=== PATIENT | male | born 1995 | race Caucasian/White ===

== ENCOUNTER 2018-02-20 05:06 | Emergency (ER) | payer OTHER ==
[2018-02-20] MEDS ORDERED: KETOROLAC TROMETHAMINE INJ/PF 30 MG/1 ML SDV IV ONE (05:35)
[2018-02-20] MEDS ORDERED: ONDANSETRON HCL INJ/PF 4 MG/2 ML SDV IV ONE (05:35)
--- NOTE | 2018-02-20 05:38 | ER Document Report ---
ED Medical Screen (RME) - General Chief Complaint: Possible Kidney Stone Stated Complaint: LEFT SIDE PAIN Time Seen by Provider: 02/20/18 05:35 Notes: Patient is a 22-year-old male presenting to the emergency department complaining of a left flank pain radiating to his left groin. Patient states he initially only had left flank pain yesterday states this morning he was awoken with increased pain radiating down to his left groin. Patient states he does have a history of kidney stones and had kidney stones 4 years ago. Patient states he took Tylenol which did not help. Patient states he is nauseated but has not vomited and admits to minor dysuria. Patient denies any penile discharge. Past medical history: Kidney stones Medication: Zyrtec Allergies: Seasonal Surgical history: None Physical exam: CVA tenderness on the left, minor left lower quadrant abdominal pain, uncircumcised penis with bilateral testicles descended no erythema or swelling noted. I have greeted and performed a rapid initial assessment of this patient. A comprehensive ED assessment and evaluation of the patient, analysis of test results and completion of the medical decision making process will be conducted by additional ED providers. TRAVEL OUTSIDE OF THE [place] IN LAST 30 DAYS: No - Related Data Allergies/Adverse Reactions: amoxicillin Allergy (Verified 02/20/18 05:15) Physical Exam - Vital signs Vitals: Temp Pulse Resp BP Pulse Ox 98.1 F 80 16 146/91 H 98 02/20/18 05:12 02/20/18 05:12 02/20/18 05:12 02/20/18 05:12 02/20/18 05:12 Course - Vital Signs Vital signs: Temp Pulse Resp BP Pulse Ox 98.1 F 80 16 146/91 H 98 02/20/18 05:12 02/20/18 05:12 02/20/18 05:12 02/20/18 05:12 02/20/18 05:12
[2018-02-20 05:57] LABS: ABSOLUTE BASOPHILS # (AUTO) 0.1 10^3/uL (0.0-0.2); ABSOLUTE EOSINOPHILS # (AUTO) 0.4 10^3/uL (0.0-0.6); ABSOLUTE MONOCYTES (AUTO) 0.9 10^3/uL (0.1-1.4); ABSOLUTE NEUT (AUTO) 7.7 10^3/uL (1.7-8.2); BASOPHILS % (AUTO) 0.7 % (0-2); EOSINOPHILS % (AUTO) 3.9 % (0-6); HEMOGLOBIN 14.2 g/dL (13.5-17.0); LYMPHOCYTES % (AUTO) 18.2 % (13-45); MEAN CORPUSCULAR HEMOGLOBIN 28.1 pg (27.0-33.4); MEAN CORPUSCULAR HGB CONC 33.7 g/dL (32.0-36.0); MEAN CORPUSCULAR VOLUME 84 fl (80-97); MONOCYTES % (AUTO) 8.1 % (3-13); PLATELET COUNT 280 10^3/uL (150-450); RED BLOOD COUNT 5.03 10^6/uL (4.35-5.55); RED CELL DISTRIBUTION WIDTH 13.2 % (11.5-14.0); SEGMENTED NEUTROPHILS % (AUTO) 69.1 % (42-78); TOTAL CELLS COUNTED % (AUTO) 100 %; WHITE BLOOD COUNT 11.1 10^3/uL (4.0-10.5)
[2018-02-20 06:01] LABS: APPEARANCE,URINE SLIGHTLY-CLOUDY; BILIRUBIN,URINE NEGATIVE (NEGATIVE); COLOR,URINE YELLOW; GLUCOSE, URINE NEGATIVE (NEGATIVE); KETONES,URINE NEGATIVE (NEGATIVE); LEUKOCYTE ESTERASE,URINE NEGATIVE (NEGATIVE); NITRITE,URINE NEGATIVE (NEGATIVE); PROTEIN,URINE 30 mg/dL (NEGATIVE); URINE SPECIFIC GRAVITY 1.014; UROBILINOGEN,URINE NEGATIVE mg/dL (<2.0)
[2018-02-20 06:11] LABS: ALANINE AMINOTRANSFERASE 21 U/L (21-72); ALBUMIN 4.3 g/dL (3.5-5.0); ALKALINE PHOSPHATASE 52 U/L (38-126); ANION GAP 12 (5-19); ASPARTATE AMINO TRANSFERASE 24 U/L (17-59); BILIRUBIN,DIRECT 0.4 mg/dL (0.0-0.4); BILIRUBIN,TOTAL 0.7 mg/dL (0.2-1.3); BLOOD UREA NITROGEN 17 mg/dL (7-20); CALCIUM 9.9 mg/dL (8.4-10.2); CARBON DIOXIDE 26 mmol/L (22-30); CHLORIDE 104 mmol/L (98-107); GLUCOSE 111 mg/dL (75-110); SODIUM 142.3 mmol/L (137-145); TOTAL PROTEIN 7.4 g/dL (6.3-8.2)
--- NOTE | 2018-02-20 07:06 | RADIOLOGY REPORT (SQ) ---
EXAM DESCRIPTION: US RETROPERITONEUM COMPLETED DATE/TME: 02/20/2018 05:35 CLINICAL HISTORY: 22 years, Male, left flank, poss stone COMPARISON: None. TECHNIQUE: Grayscale and Doppler sonogram of the kidneys and urinary bladder. LIMITATIONS: None. FINDINGS: FINDINGS: Right kidney: Length: 12.4 cm. Hydronephrosis: Mild Echogenicity: Within normal limits. Other: None. Left kidney: Length: 13.0 cm. Hydronephrosis: Mild to moderate Echogenicity: Within normal limits. Other: There is a 1.2 cm echogenic focus with shadowing along the mid pole. There is another 9 mm echogenic focus along the lower pole Urinary bladder: Lumen: Unremarkable. The bilateral ureteral jets are identified. IMPRESSION: Two echogenic foci within the left kidney, likely representing renal stones. Mild right-sided hydronephrosis. Mild to moderate left-sided hydronephrosis. copyright 2010 [employer]- All Rights Reserved
--- NOTE | 2018-02-20 07:08 | ER Document Report ---
ED General - General Chief Complaint: Possible Kidney Stone Stated Complaint: LEFT SIDE PAIN Time Seen by Provider: 02/20/18 05:35 TRAVEL OUTSIDE OF THE [place] IN LAST 30 DAYS: No - HPI Patient complains to provider of: Left-sided flank pain Onset: Other - Generally healthy 22-year-old man who presents for pain along his left flank which is similar to previous episodes of kidney stones he has had in the past. He notes he has had several kidney stones in the past and had been followed by urologist in [place] but has not seen one in many months. She denies any fevers or chills, recent illnesses or trauma to that side, he notes that he woke up from sleep with pain along the left flank. - Related Data Allergies/Adverse Reactions: amoxicillin Allergy (Verified 02/20/18 05:15) Past Medical History - General Information source: Patient - Social History Smoking Status: Current Every Day Smoker Chew tobacco use (# tins/day): No Frequency of alcohol use: None Drug Abuse: None Family History: None Patient has suicidal ideation: No Patient has homicidal ideation: No Renal/ Medical History: Denies: Hx Peritoneal Dialysis Review of Systems - Review of Systems -: Yes All other systems reviewed and negative Physical Exam - Vital signs Vitals: Temp Pulse Resp BP Pulse Ox 98.1 F 80 16 146/91 H 98 02/20/18 05:12 02/20/18 05:12 02/20/18 05:12 02/20/18 05:12 02/20/18 05:12 - General General appearance: Appears well, Alert - HEENT Head: Normocephalic, Atraumatic Eyes: Normal Pupils: PERRL - Respiratory Respiratory status: No respiratory distress Chest status: Nontender Breath sounds: Normal Chest palpation: Normal - Cardiovascular Rhythm: Regular Heart sounds: Normal auscultation Murmur: No - Abdominal Distension: No distension Tenderness: Other - Tenderness to palpation along the left flank, tenderness to percussion in the left CVA Organomegaly: No organomegaly - Back Back: Tender - Extremities General upper extremity: Normal inspection, Nontender, Normal color, Normal ROM , Normal temperature General lower extremity: Normal inspection, Nontender, Normal color, Normal ROM , Normal temperature, Normal weight bearing. No: Trisha's sign - Neurological Neuro grossly intact: Yes Cognition: Normal Orientation: AAOx4 Skip Coma Scale Eye Opening: Spontaneous Skip Coma Scale Verbal: Oriented [place] Coma Scale Motor: Obeys Commands [place] Coma Scale Total: 15 Speech: Normal Motor strength normal: LUE, RUE, LLE, RLE Sensory: Normal - Psychological Associated symptoms: Normal affect, Normal mood Course - Re-evaluation Re-evalutation: 02/20/18 07:31 22-year-old male who presents for left-sided flank pain. Had ultrasound ordered as well as urinalysis and chemistry prior to my arrival. On exam the patient is in no distress at this time and his pain is improved. We will plan for reassessment following labs. Urinalysis demonstrates hematuria without any obvious signs of infection. He is got a normal creatinine. Patient's resting comfortably, has no signs to suggest more serious underlying intra-abdominal process such as but not limited to diverticulitis appendicitis pancreatitis. We will plan for discharge with return precautions and a brief course of narcotic prescription as well as expulsive therapy with Flomax. - Vital Signs Vital signs: Temp Pulse Resp BP Pulse Ox 98.1 F 80 16 146/91 H 98 02/20/18 05:12 02/20/18 05:12 02/20/18 05:12 02/20/18 05:12 02/20/18 05:12 - Laboratory Result Diagrams: 02/20/18 05:38 02/20/18 05:38 Laboratory results interpreted by me: 02/20/18 02/20/18 02/20/18 05:38 05:38 05:38 WBC 11.1 H Glucose 111 H Urine Protein 30 H Urine Blood LARGE H Discharge - Discharge Clinical Impression: Kidney stone on left side, Flank pain Hematuria Qualifiers: Hematuria type: unspecified type Qualified Code(s): R31.9 - Hematuria, unspecified Condition: Good Disposition: HOME, SELF-CARE Instructions: Oral Narcotic Medication ([facility]), Kidney Stone ([facility]) Additional Instructions: Your seen today in the emergency department for the pain in your flank. It is likely that this is related to a kidney stone. You will be given a prescription to help with the pain, use it only as needed. Return if you have fevers of higher than 101 degrees. Contact a local urologist to follow-up as you are continuing to have kidney stones and they may be able to help prevent them. Prescriptions: Hydrocodone/Acetaminophen [[place] 5-325 Tablet] 1 each PO Q8H PRN 3 Days #12 tablet PRN Reason: For Pain Scale 4-5 Tamsulosin HCl [Flomax 0.4 mg Cap.sr] 0.4 mg PO DAILY #7 cap.sr.24h Forms: Return to Work Referrals: EUGENIE NUNEZ MD [[facility]] - Follow up as needed
[2018-02-20 07:25] VITALS: BP 139/76
== END 2018-02-20 07:26 | disposition home or self-care (01) ==
LOC: ER 05:06
DX: N20.0 Calculus of kidney (principal); R31.9 Hematuria, unspecified; R10.9 Unspecified abdominal pain; F17.200 Nicotine dependence, unspecified, uncomplicated; Z88.0 Allergy status to penicillin
CPT/HCPCS: 99284; 96374; 96375; 36415; 85025; 80053; 81001; 76770; J1885; J2405